=== PATIENT | male | born 1955 | race Caucasian/White ===

== ENCOUNTER 2016-11-19 12:48 | Emergency (ER) | payer MEDICARE, OTHER ==
[~2016-11-19] VITALS: Ht 165.1 cm; Wt 86.5 kg
[2016-11-19 12:54] VITALS: TEMP 98.1
[2016-11-19] MEDS ORDERED: GLUCOTROL10 MG PO (14:15)
[2016-11-19] MEDS ORDERED: EXCEDRIN1 TAB PO (14:15)
[2016-11-19] MEDS ORDERED: PRINIVIL10 MG PO (14:16)
[2016-11-19] MEDS ORDERED: DESYREL 50MG50 MG PO (14:16)
[2016-11-19] MEDS ORDERED: ONE DAILY1 TA1 PO (14:16)
[2016-11-19] MEDS ORDERED: SEROQUEL 200MG200 MG PO (14:17)
[2016-11-19] MEDS ORDERED: PROZAC 20MG20 MG PO (14:17)
[2016-11-19] MEDS ORDERED: LIPITOR 80MG80 MG PO (14:19)
[2016-11-19] MEDS ORDERED: PROBIOTIC FORMU1 CAP PO (14:19)
[2016-11-19] MEDS ORDERED: PRECOSE50 MG (14:19)
[2016-11-19 14:20] LABS: BASO # 0.1 (0.0-0.2); BASO % 0.7 % (0.0-2.0); EOS # 0.4 (0.0-0.7); EOS % 6.2 % (0-4.0); GRAN # 3.3 (1.4-6.5); GRAN % 46.2 % (42.2-75.2); HEMOGLOBIN 12.8 g/dl (13.5-18.0); LYMPH # 2.8 (1.2-3.4); LYMPH % 39.4 % (20.0-51.0); MEAN CELL VOLUME 87 fl (80.0-100.0); MEAN CORPUSCULAR HEMOGLOBIN 30 pg (27.0-31.0); MEAN CORPUSCULAR HGB CONC 35 g/dl (33.0-37.0); MEAN PLATELET VOLUME 9.7 fl (7.4-10.4); MONO # 0.5 (0.1-0.6); MONO % 7.2 % (1.7-9.3); PLATELET COUNT 210 K/mm3 (130-400); RED BLOOD COUNT 4.26 M/mm3 (4.20-5.60); REDCELL DISTRIBUTION WIDTH-CV 12.5 % (11.5-14.5); WHITE BLOOD COUNT 7.1 K/mm3 (4.8-10.8)
[2016-11-19 14:33] LABS: ADJUSTED CALCIUM 9.2 mg/dL (8.4-10.2); ALANINE AMINOTRANSFERASE 113 U/L (21-72); ALBUMIN 4.2 gm/dL (3.5-5.0); ALKALINE PHOSPHATASE 93 U/L (50-136); ANION GAP 14 mmol/L (7-16); BILIRUBIN,TOTAL 0.9 mg/dL (0.0-1.0); BLOOD UREA NITROGEN 9 mg/dL (9-20); C-REACTIVE PROTEIN < 0.5 mg/dL (0.0-0.9); CALCIUM 9.4 mg/dL (8.4-10.2); CARBON DIOXIDE 19 mmol/L (22-30); CHLORIDE 106 mmol/L (98-107); CREATININE, serum 0.78 mg/dL (0.66-1.25); GLUCOSE 212 mg/dL (74-106); POTASSIUM 3.9 mmol/L (3.4-5.0); SODIUM 138 mmol/L (137-145); TOTAL PROTEIN 7.1 gm/dL (6.4-8.2)
[2016-11-19 14:44] LABS: TROPONIN-I < 0.012 ng/mL (0.000-0.034)
[2016-11-19] MEDS ORDERED: ANTIVERT 25MG25 MG PO (15:19)
[2016-11-19 15:24] VITALS: BP 122/85; PULSE 73
== END 2016-11-19 15:37 | disposition home or self-care (01) ==
LOC: COL.ER 12:48
PROVIDERS: Emergency Medicine
DX: R42 Dizziness and giddiness (principal); E11.9 Type 2 diabetes mellitus without complications; Z87.19 Personal history of other diseases of the digestive system; Z86.69 Personal history of other diseases of the nervous system and sense organs; Z79.84 Long term (current) use of oral hypoglycemic drugs; Z79.82 Long term (current) use of aspirin
CPT/HCPCS: J2060; J2405; J7030